=== PATIENT | female | born 1990 | race Caucasian/White ===

== ENCOUNTER 2019-06-25 10:31 | Outpatient (CLI) | payer OTHER, SELFPAY ==
--- NOTE | ~2019-06-25 | US_ITS ---
US OB follow up DATE: 06/25/2019 11:23 INDICATION: Uterine size discrepancy for date TECHNIQUE: Real-time imaging and Doppler analysis COMPARISON: None FINDINGS: Live adam intrauterine gestation, fetus in vertex presentation, longitudinal lie. Feta l heart rate of 113 bpm. Anterior placenta. Amniotic fluid index measures 8.6 cm, which is near the 5th percentile of 7.2 cm. A 95th percentile A FI is 22.6 cm. Biparietal diameter 9.04 cm; 36 weeks 4 days estimated gestational age Head circumference 30.86 cm; 34 weeks 3 days Abdominal circumference 34.82 cm; 38 weeks 5 days Femur length 7.36 cm; 37 weeks 5 days Composite age by [place] formula would be 36 weeks 6 days +/- 2 weeks 4 days; ÁNGEL 07/17/2019, compared to 07/02/2019 by LMP. Third trimester ultrasound estimates of gestational age are not optimally accurate and should not alt er and established gestational age from overlying last menstrual period or first or second trimester ultrasound estimate. Estimated weight is 3287 +/- 493 g. Femur length/BPD: 81.35, within normal range of 71.0-87.0 Head circumference/abdominal circumference measures 0.89, which is below normal range of 0.9 to-1.05 Femur length/analysis, 21.12, within normal range of 20.00-24.00 Femur length/head circumference 23.84, slightly above normal range of 20.70-22.53. IMPRESSION: Amniotic fluid index measures 8.63 cm, low normal Estimated weight is 3287 +/- 493 g Reviewed, dictated and finalized at [facility]. Reviewed, dictated and finalized at [facility].
== END 2019-06-25 10:32 | disposition home or self-care (01) ==
PROVIDERS: Visit Provider Obstetrics & Gynecology
DX: O26.849 Uterine size-date discrepancy, unspecified trimester (principal)
CPT/HCPCS: 76816

== ENCOUNTER 2019-06-28 17:40 | Inpatient (IN) | payer OTHER, SELFPAY ==
[2019-06-28] VITALS (7 sets, daily range): BP systolic 103–112; BP diastolic 52–70; PULSE 88–100; TEMP 37–37.1; BMI 35.4
[2019-06-28 18:34] LABS: Basophils Percent Auto 0.4 % (0.2-1.2); Eosinophils Absolute Auto 0.1 K/mm3 (0-0.3); Eosinophils Percent Auto 0.7 % (0-4.4); Hematocrit 32.5 % (37.0-47.0); Hemoglobin 10.5 g/dL (12.0-15.0); Immature Granulocyte Absolute 0.08 K/mm3 (0.00-0.031); Immature Granulocyte Percent A 0.7 % (0-0.5); Lymphocytes Absolute Auto 2.05 K/mm3 (0.9-3.2); Mean Corpuscular HGB Conc 32.3 g/dl (32-36); Mean Corpuscular Hemoglobin 28.1 pg (26-34); Mean Corpuscular Volume 86.9 fl (80-100); Monocytes Absolute Auto 0.7 K/mm3 (0.1-0.6); Monocytes Percent Auto 6.6 % (2.6-8.5); Neutrophils Absolute Auto 7.8 K/mm3 (1.3-6.7); Neutrophils Percent Auto 72.6 % (45.5-73.1); Platelet Count Result 258 k/mm3 (150-375); Red Blood Count 3.74 M/mm3 (4.2-5.4); Red Cell Distribution Width 13.7 % (11.5-14.5); White Blood Count 10.8 K/mm3 (4.5-10.0)
--- NOTE | 2019-06-28 18:37 | LDADM ---
This patient, Soo Fuchs, was admitted to Labor/Delivery/Recovery 106 on 06/28/19 at 17:40. Plans for labor, pain management and were discussed with patient. Patient/family oriented to hospital policies and general routines including ID bracelet, bed and alarms, visiting hours, pain management, procedures, bathroom and other care routines, personal items, smoking policy, room service/diet and guest tray routines, infant security routines, and visiting hours. Patient/Family are encouraged to report perceived risks to care and to ask questions if they do not understand what they are told or what they should do. See OBIX for further documentation.
[2019-06-28] MEDS: DINOPROSTONE 10 MG VAG INSERT VAGINAL (18:52)
[2019-06-28] MEDS: Please add drug allergy info to patient profile. 1 EACH XX (19:09)
[2019-06-29] VITALS (56 sets, daily range): BP systolic 84–144; BP diastolic 30–113; PULSE 63–126; RESP 16–18; TEMP 36.2–37.7; O2SAT 94–100
--- NOTE | 2019-06-29 01:28 | WPDANESEPP ---
Anes - Eval Pre Procedure Procedure: Labor epidural Date/Time: 06/29/19 01:28 Surgeon: ronni Preop Diagnosis: ABD pain with contractions Pre Op Diagnosis: IOL Patient Data Age: 29 Gender: F Height: 5 ft 5 in Weight: 96.5 kg Last Vital Signs Temp 98.2 F 06/29/19 00:50 Pulse 90 06/29/19 00:50 BP 111/72 06/29/19 00:50 Allergies Allergy/AdvReac Type Severity Reaction Status Date / Time No Known Allergies Allergy Verified 06/28/19 19:06 Home Medications Medication Instructions Recorded Confirmed Type PNV cmb#95-ferrous fumarate-FA 1 tablet PO DAILY 06/28/19 06/28/19 History [] Laboratory Tests 06/28/19 06/28/19 06/28/19 18:27 18:27 18:27 WBC 10.8 K/mm3 H K/mm3 (4.5-10.0) RBC 3.74 M/mm3 L M/mm3 (4.2-5.4) Hgb 10.5 g/dL L g/dL (12.0-15.0) Hct 32.5 % L % (37.0-47.0) MCV 86.9 fl fl (80-100) MCH 28.1 pg pg (26-34) MCHC 32.3 g/dl g/dl (32-36) RDW 13.7 % % (11.5-14.5) Plt Count 258 k/mm3 k/mm3 (150-375) MPV 11.0 fl H fl (7.4-10.4) Immature Gran % (Auto) 0.7 % H % (0-0.5) Neut % (Auto) 72.6 % % (45.5-73.1) Lymph % (Auto) 19.0 % % (18.3-44.2) [place] % (Auto) 6.6 % % (2.6-8.5) Eos % (Auto) 0.7 % % (0-4.4) Baso % (Auto) 0.4 % % (0.2-1.2) Lymph # (Auto) 2.05 K/mm3 K/mm3 (0.9-3.2) [place] # (Auto) 0.7 K/mm3 H K/mm3 (0.1-0.6) Eos # (Auto) 0.1 K/mm3 K/mm3 (0-0.3) Baso # (Auto) 0.0 K/mm3 K/mm3 (0.0-0.1) Abs Immat Gran (auto) 0.08 K/mm3 H K/mm3 (0.00-0.031) Absolute Neuts (auto) 7.8 K/mm3 H K/mm3 (1.3-6.7) Absolute Nucleated RBC 0.0 K/mm3 K/mm3 (0.0-0.012) Nucleated RBC % 0.0 % % (0.0-0.2) RPR Pending Blood Type A Positive Antibody Screen Negative Patient hx anesthesia problems: none Family hx anesthesia problems: none PMFSH Past Medical History Medical History (Updated 06/29/19 @ 01:31 by Andres Marie CRNA) Obesity and not yet delivered Family History Family History Father Congestive heart failure Diabetes mellitus Skin cancer Social History Social History Smoking status: Never smoker Second hand tobacco smoke exposure: No Substance use: never Gender identity (if verbalized by the patient): Female Spiritual care concerns: No Exam Day of Procedure 06/29/19 01:28 Patient weight: obese Airway: Mallampati scale class II Neurological: alert and oriented
[2019-06-29] MEDS: LACTATED RINGERS 1,000 ML 125 ML IV CONT ×2 (04:58→06:45)
[2019-06-29] MEDS: OXYTOCIN 30 UNITS/NS 500 ML 30 UNITS/500 ML BAG IV CONT (04:59)
--- NOTE | 2019-06-29 08:35 | P.PCNOB_ITS ---
OB - Delivery Note Procedure Route of delivery: Laceration description: None Specimen: No Estimated blood loss (mL): 200 Anesthesia type: Epidural Disposition: floor Narrative: Patient was prepped and draped in the usual sterile manner for this procedure. Maternal expulsive efforts readily delivered vertex with suction the nasal and oropharynx. The rest of baby was delivered without difficulty. Cord was clamped cut placenta delivered spontaneously and the uterus was well contracted. Cervix vagina and vulva were inspected no lacerations or tears. This point seizure was considered terminated with immediate postoperative condition of mother and baby both excellent. Celeste Baby Weeks of gestation at delivery: 39 Infant gender: Male Weight (pounds): 7 Weight (ounces): 10 score one minute: 9 score five minutes: 9
--- NOTE | 2019-06-29 08:35 | WPDHPUPDATE1 ---
History and Physical Update Update Date/Time: 06/29/19 08:35 History and Physical has been reviewed, including an updated exam of the patient. There are NO changes in the patient's condition. Risks, benefits, and alternatives have been discussed and questions answered. Patient agrees to proceed with procedure.
--- NOTE | 2019-06-29 08:35 | WPDOBADMIT ---
Obstetrics - Admit Note Admission Note: record reviewed. No pertinent additions to the history and/or any subsequent changes in the physical findings that are not consistent with the expected course of the were found. Additions to the history and/or subsequent changes in the physical findings follow. None.
[2019-06-29] MEDS: OXYTOCIN 30 UNITS/NS 500 ML 30 UNITS/500 ML BAG 125 UNITS IV CONT (08:56)
[2019-06-29] MEDS: WITCH HAZEL 40 PADS 1 PAD TOPICAL (10:53)
[2019-06-29] MEDS: ACETAMINOPHEN 325 MG TABLET 650 MG PO ×2 (10:53→23:48)
[2019-06-29] MEDS: BENZOCAINE 20% AER SPR (*SP) 56 GM CAN 1 SPRAY TOPICAL (10:53)
--- NOTE | 2019-06-29 11:27 | OBPPTRN ---
Patient transferred to post room # 288 via wheelchair. Support person present. Oriented to unit, room, information board, rooming in, admission packet and security measures. Patient verbalizes understanding.
[2019-06-29 11:41] LABS: Rapid Plasma Reagin Non-Reactive (NonReactive)
[2019-06-29] MEDS: IBUPROFEN 600 MG TABLET PO (20:39)
[2019-06-30 05:20] LABS: Hematocrit 28.9 % (37.0-47.0); Hemoglobin 9.2 g/dL (12.0-15.0)
[2019-06-30 08:25] VITALS: BP 89/52; PULSE 65; RESP 16; TEMP 36.9; O2SAT 99
--- NOTE | 2019-06-30 08:30 | PC.NURSE ---
PT introductions made and plan of care discussed per post , pain management, bottle feeding, daily care activities and pending discharge to home. PT verbalized understanding of such care.
--- NOTE | 2019-06-30 09:03 | WPDANLDPN2 ---
Anes-Prog Note L&D Date/Time: 06/30/19 09:03 Comfortable throughout: labor Neuraxial method: epidural Epidural/Spinal procedure site: clean & non-tender Neuro status: Neuro function grossly intact. Cardiovascular status: normal Respiratory status: normal Airway patency: baseline Mental status: baseline Post-Op hydration status: normal Vital Signs: Last Vital Signs Temp 36.6 C 06/29/19 19:30 Pulse 97 06/29/19 19:30 Resp 16 06/29/19 19:30 BP 116/63 06/29/19 19:30 Pulse Ox 99 06/29/19 19:30 Post-procedural complaints: none Patient feedback: Patient satisfied with anesthetic care.
[2019-06-30] MEDS: DOCUSATE SODIUM 100 MG CAPSULE PO (09:53)
[2019-06-30] MEDS: POLYSACCHARIDE IRON COMPLEX 150 MG CAPSULE PO (09:53)
[2019-06-30] MEDS: ACETAMINOPHEN 325 MG TABLET 650 MG PO (09:55)
[2019-06-30] MEDS: IBUPROFEN 600 MG TABLET PO (09:55)
[2019-06-30 10:00] VITALS: PULSE 65; RESP 16; O2SAT 99
--- NOTE | 2019-06-30 12:09 | PM.OBDSVD ---
OB - DS: Summary OB Procedures : None OB Procedures Intrapartum: Spontaneous Vag Delivery OB Procedures: : None Time Spent with Patient Time attestation: Total time spent providing and/or coordinating discharge services: DS: Data Data Completed and Pending Labs on day of discharge: Labs from last 24 hours 06/30/19 04:58 Hgb 9.2 L Hct 28.9 L Discharge Plan Discharge Discharging Clinician: Jose Miguel Bueno Patient Disposition: Home, Self-Care Activity: as tolerated Diet: as tolerated Discharge Instructions: Education: Mom and Baby Guide Given to: Mother Follow-Up: Call your delivering provider's office for an appointment to be seen in: 3 weeks Mom and baby should come to the [facility] for the follow-up appointment. Appointment Date/Time: July 01, 2019 at 10:00 am What to expect at your follow-up visit: Blood Pressure Check Call [phone] if you are unable to keep your appointment time. BREAST CARE: 1. Wear a snug supportive bra. 2. For engorgement discomfort: Bottle Feeding: A. May apply ice packs PERINEAL CARE: 1. Until bleeding stops, use your hollis bottle after urinating 2. Change your pad frequently throughout the day 3. You may take sitz baths several times a day (fill your bathtub with warm water and soak for 20 minutes.) Do NOT bathe in the water 4. No tub baths until seen by your physician - You may shower ACTIVITY: 1. Rest as much as possible. 2. Do not exercise or lift anything heavier than your baby (such as laundry or other children.) 3. Avoid stairs or driving as much as possible. 4. Do not put anything into the vagina. No douching, tampons, or sexual activity until seen by physician. NOTIFY PHYSICIAN IF YOU HAVE ANY QUESTIONS OR IF ANY OF THE FOLLOWING SYMPTOMS OCCUR: 1. If your perineum becomes red, swollen, or more painful than what you have experienced in the hospital. 2. If your vaginal bleeding becomes foul smelling. 3. If your vaginal bleeding becomes more heavy than a period or if your bleeding changes from pink to bright red. However, you may pass an occasional walnut-sized clot once or twice for the first week . 4. If you experience a sharp, shooting pain in you calves. 5. If you discover a hard, reddened area on your breast or if you experience flu-like symptoms. 6. Call for temp 100.4 or greater DIET: 1. Eat regular, well-balanced meals. 2. Drink plenty of fluids daily. If , drink to thirst. Patient Instructions: Antibiotic Form Stand Alone Forms: General Discharge Information Follow-up/Referrals: Jose Miguel Bueno MD [Physician] - 3 Weeks Discharge Medications: New ibuprofen 600 mg Tablet 600 mg PO Q6H PRN (Reason: Cramping) Qty: 30 RF: 0 Continued PNV cmb#95-ferrous fumarate-FA [] 28 mg iron- 800 mcg Tablet 1 tablet PO DAILY RF: 0 Date of admission: 06/28/19 17:40 Primary Care Provider: PHYSICIAN,ATOMIC PROCESS ENGINEER Admitting Provider: Jose Miguel Bueno Attending physician on admission: Jose Miguel Bueno
--- NOTE | 2019-06-30 14:15 | PC.NURSE ---
PT received discharge instructions per protocol and verbalized understanding of such instructions.
--- NOTE | 2019-06-30 15:11 | PC.NURSE ---
PT discharged to home ambulatory accompanied by mother and to waiting car. Follow up appts confirmed
== END 2019-06-30 15:11 | disposition home or self-care (01) | DRG 560 ==
LOC: ANHLDR 17:48 → ANHOB2 06-29 11:32
PROVIDERS: Admitting Provider Obstetrics & Gynecology; Visit Provider Obstetrics & Gynecology
DX: O62.3 Precipitate labor (principal); Z37.0 Single live birth; Z3A.39 39 weeks gestation of pregnancy; O99.214 Obesity complicating childbirth; E66.9 Obesity, unspecified; O99.344 Other mental disorders complicating childbirth; F41.9 Anxiety disorder, unspecified
CPT/HCPCS: 36415; 85014; 85018; 85025; 86592; 86850; 86900; 86901; A9270; J2590; J2795; J3010; J7120